=== PATIENT | male | born 1985 | race Caucasian/White ===

== ENCOUNTER 2019-01-12 10:02 | Emergency (ER) | payer OTHER ==
[~2019-01-12] VITALS: Ht 165.1 cm; Wt 81.6 kg
[2019-01-12 10:12] VITALS: Ht 165.1 cm; Wt 81.6 kg
[2019-01-12 14:33] LABS: BASOPHIL % 0.3 % (0-2); PLATELET COUNT 393 x10^3mcL (130-400); RED CELL DISTRIBUTION WIDTH 12.5 % (11.5-14.5)
[2019-01-12 14:43] LABS: CALCIUM 8.7 mg/dL (8.5-10.1); CHLORIDE SERUM 106 mmol/L (98-107); GFR1 > 60 mL/min; GLUCOSE SERUM 126 mg/dL (74-106); SODIUM SERUM 141 mmol/L (136-145)
[2019-01-12 14:57] LABS: ALBUMIN 3.8 g/dL (3.4-5.0); ALKALINE PHOSPHATASE 64 U/L (46-116); ALT/SGPT 36 U/L (16-63); AST/SGOT 24 U/L (15-37); BILIRUBIN TOTAL 0.4 mg/dL (0.20-1.00)
[2019-01-12 18:14] LABS: AMPHETAMINE QUAL UR NONE DETECTED (See below)
[2019-01-12 20:00] VITALS: BP 109/66
== END 2019-01-12 21:00 | disposition short-term general hospital (02) ==
LOC: ED 10:02
PROVIDERS: Emergency Medicine
DX: T40.1X1A Poisoning by heroin, accidental (unintentional), initial encounter (principal); J45.901 Unspecified asthma with (acute) exacerbation; E78.5 Hyperlipidemia, unspecified; Y92.89 Other specified places as the place of occurrence of the external cause
CPT/HCPCS: 85378; J0456; J0696; J2930; J7030; J7050; J7613; Q0092; Q9967

== ENCOUNTER 2019-10-04 19:39 | Emergency (ER) | payer OTHER ==
[~2019-10-04] VITALS: Ht 162.6 cm; Wt 85.7 kg
[2019-10-04 20:13] VITALS: Ht 162.6 cm; Wt 85.7 kg
[2019-10-04 21:31] VITALS: BP 134/100
== END 2019-10-04 21:31 | disposition home or self-care (01) ==
LOC: ED 19:39
DX: K08.89 Other specified disorders of teeth and supporting structures (principal); J45.909 Unspecified asthma, uncomplicated; E78.5 Hyperlipidemia, unspecified

== ENCOUNTER 2020-07-30 19:07 | Emergency (ER) | payer OTHER ==
[~2020-07-30] VITALS: Ht 162.6 cm; Wt 87.1 kg
[2020-07-30 19:28] VITALS: Ht 162.6 cm; Wt 87.1 kg
[2020-07-30 19:57] VITALS: BP 146/101
== END 2020-07-30 19:57 | disposition home or self-care (01) ==
LOC: ED 19:07
DX: F41.0 Panic disorder [episodic paroxysmal anxiety] (principal); J45.909 Unspecified asthma, uncomplicated; Z76.0 Encounter for issue of repeat prescription

== ENCOUNTER 2020-09-28 20:53 | Emergency (ER) | payer OTHER ==
[~2020-09-28] VITALS: Ht 167.6 cm; Wt 85.7 kg
[2020-09-28 21:00] VITALS: BP 144/88; Ht 167.6 cm; Wt 85.7 kg
== END 2020-09-28 22:05 | disposition home or self-care (01) ==
LOC: ED 20:53
DX: J45.909 Unspecified asthma, uncomplicated (principal); K03.81 Cracked tooth; K08.89 Other specified disorders of teeth and supporting structures